=== PATIENT | female | born 1970 | race Hispanic/Latino ===

== ENCOUNTER 2021-05-14 11:24 | Emergency (ER) | payer OTHER ==
[~2021-05-14] VITALS: Ht 152.4 cm; Wt 58.7 kg
[2021-05-14] MEDS ORDERED: EFFEXOR XR150 MG PO (11:50)
[2021-05-14] MEDS ORDERED: IBUPROFEN IB200 MG PO (12:01)
[2021-05-14] MEDS ORDERED: ONDANSETRON ODT4 MG PO (12:01)
[2021-05-14] MEDS ORDERED: BENZONATATE200 MG PO (12:01)
[2021-05-14] MEDS ORDERED: THERAFLU FLU &1 EAC1 PO (12:01)
[2021-05-14] MEDS ORDERED: PROVENTIL HFA6.7 GM INH (12:01)
[2021-05-14] MEDS ORDERED: AZITHROMYCIN250 MG PO (12:01)
== END 2021-05-14 12:25 | disposition home or self-care (01) ==
LOC: FSED 11:30
DX: U07.1 COVID-19 (principal); R05.9 Cough, unspecified; R06.02 Shortness of breath; F32.A Depression, unspecified
CPT/HCPCS: 71046; 81003; 99283